=== PATIENT | female | born 1950 | race Two or more races ===

== ENCOUNTER 2022-12-19 10:35 | Inpatient (IN) | payer OTHER ==
[~2022-12-19] VITALS: Ht 152.4 cm; Wt 63.5 kg
[2022-12-19 12:10] LABS: MEAN CELL VOLUME 72.5 fL (80.00-100.00); MEAN CORPUSCULAR HGB CONC 30.3 g/dl (32.0-36.0); PLATELET COUNT 297 K/uL (150-450); RED CELL DISTRIBUTION WIDTH 23.8 % (11.5-14.5)
[2022-12-19 12:13] LABS: MEAN CORPUSCULAR HEMOGLOBIN 21.8 pg (27.00-32.0)
[2022-12-19 12:14] LABS: HEMATOCRIT 23.2 % (36.0-45.00)
[2022-12-19 12:25] LABS: INR 1.06; PARTIAL THROMBOPLASTIN TIME 25.1 SECONDS (22.0-34.0); PROTHROMBIN TIME 11.1 SECONDS (9.0-11.5)
[2022-12-19 12:32] LABS: ALBUMIN 3.3 gm/dL (3.4-5.0); BILIRUBIN TOTAL 0.69 mg/dL (0.3-1.2); BILIRUBIN,CONJUGATED 0.19 mg/dL (0.0-0.2); BILIRUBIN,UNCONJUGATED 0.5 mg/dL (0.0-0.6); CALCIUM 8.6 mg/dL (8.5-10.1); CREATININE SERUM 0.8 mg/dL (0.55-1.02); GFR 70.31; GLOBULINA 3.4 G/DL (2.4-3.5); POTASSIUM 3.94 mEq/L (3.5-5.1); TOTAL PROTEIN 6.7 gm/dL (6.4-8.2)
[2022-12-19 21:07] LABS: INR 1.03; PARTIAL THROMBOPLASTIN TIME 25.3 SECONDS (22.0-34.0); PROTHROMBIN TIME 10.8 SECONDS (9.0-11.5)
[2022-12-19 21:55] LABS: URINE APPEARANCE Clear; URINE BILIRRUBIN Negative (NEGATIVE); URINE BLOOD Negative; URINE COLOR Yellow; URINE GLUCOSE Negative (NEGATIVE); URINE LEUKOCYTE Moderate; URINE NITRATE Negative; URINE PROTEIN Negative (NEGATIVE); URINE UROBILINOGEN 0.2 E.U./dl
[2022-12-19 21:59] LABS: URINE BACTERIA 37.7 uL (0.0-1933); URINE EPITHELIAL CELLS 9.8 uL (0.0-38.8); URINE WBC 77.2 uL (0.0-23.2)
[2022-12-19 21:59] LABS: ob NEGATIVE (NEGATIVE)
[2022-12-19 22:00] LABS: URINE RBC 0.7 uL (0.0-20.8)
[2022-12-21 20:05] LABS: HEMATOCRIT 38.5 % (36.0-45.00); MEAN CELL VOLUME 77.6 fL (80.00-100.00); MEAN CORPUSCULAR HEMOGLOBIN 24.2 pg (27.00-32.0); MEAN CORPUSCULAR HGB CONC 31.2 g/dl (32.0-36.0); PLATELET COUNT 303 K/uL (150-450); RED BLOOD COUNT 4.96 M/uL (4.00-6.00); RED CELL DISTRIBUTION WIDTH 23.9 % (11.5-14.5)
[2022-12-22 12:42] LABS: ALBUMIN 3.5 gm/dL (3.4-5.0); BILIRUBIN TOTAL 0.92 mg/dL (0.3-1.2); CALCIUM 8.7 mg/dL (8.5-10.1); CHOL HDL RATIO 2.5 (0-5.0); CREATININE SERUM 0.6 mg/dL (0.55-1.02); GFR 97.99; POTASSIUM 3.63 mEq/L (3.5-5.1); TOTAL PROTEIN 6.5 gm/dL (6.4-8.2)
[2022-12-24 06:29] LABS: HEMATOCRIT 34.1 % (36.0-45.00); HEMOGLOBIN 11.1 g/dL (12.0-15.00); MEAN CELL VOLUME 76.1 fL (80.00-100.00); MEAN CORPUSCULAR HEMOGLOBIN 24.7 pg (27.00-32.0); MEAN CORPUSCULAR HGB CONC 32.5 g/dl (32.0-36.0); PLATELET COUNT 261 K/uL (150-450); RED BLOOD COUNT 4.48 M/uL (4.00-6.00); RED CELL DISTRIBUTION WIDTH 24.8 % (11.5-14.5)
[2022-12-24] MEDS ORDERED: JARDIANCE10 MG (11:47)
[2022-12-24] MEDS ORDERED: GABAPENTIN300 M2 (11:47)
[2022-12-24] MEDS ORDERED: ROSUVASTATIN CAL5 MG (11:48)
[2022-12-25 06:59] LABS: ALBUMIN 3.2 gm/dL (3.4-5.0); CALCIUM 8.4 mg/dL (8.5-10.1); CREATININE SERUM 0.62 mg/dL (0.55-1.02); GFR 94.35; POTASSIUM 4.72 mEq/L (3.5-5.1)
[2022-12-25 07:01] LABS: HEMATOCRIT 34.8 % (36.0-45.00); HEMOGLOBIN 11.2 g/dL (12.0-15.00); MEAN CELL VOLUME 76.6 fL (80.00-100.00); MEAN CORPUSCULAR HEMOGLOBIN 24.7 pg (27.00-32.0); MEAN CORPUSCULAR HGB CONC 32.3 g/dl (32.0-36.0); PLATELET COUNT 256 K/uL (150-450); RED BLOOD COUNT 4.55 M/uL (4.00-6.00); RED CELL DISTRIBUTION WIDTH 24.8 % (11.5-14.5)
== END 2022-12-25 21:57 | DRG 812 ==
LOC: ER 10:36 → SURG 18:56 → EDBD 18:56 → SEC-K 18:56 → SURG 21:47
PROVIDERS: Emergency Medicine; General Practice; ADMIT Internal Medicine; ATTEND Internal Medicine
PROC: BW21YZZ Computerized Tomography (CT Scan) of Abdomen and Pelvis using Other Contrast (ICD-10-PCS; 2022-12-19)
PROC: 30233N1 Transfusion of Nonautologous Red Blood Cells into Peripheral Vein, Percutaneous Approach (ICD-10-PCS; principal; 2022-12-20)
PROC: 02HV33Z Insertion of Infusion Device into Superior Vena Cava, Percutaneous Approach (ICD-10-PCS; 2022-12-22)
PROC: 3E0436Z Introduction of Nutritional Substance into Central Vein, Percutaneous Approach (ICD-10-PCS; 2022-12-22)
PROC: 0DB68ZX Excision of Stomach, Via Natural or Artificial Opening Endoscopic, Diagnostic (ICD-10-PCS; 2022-12-23)
PROC: BB24YZZ Computerized Tomography (CT Scan) of Bilateral Lungs using Other Contrast (ICD-10-PCS; 2022-12-24)
DX: D64.89 Other specified anemias (principal); K92.2 Gastrointestinal hemorrhage, unspecified; D49.0 Neoplasm of unspecified behavior of digestive system; E11.9 Type 2 diabetes mellitus without complications; Z74.01 Bed confinement status; Z79.4 Long term (current) use of insulin

== ENCOUNTER 2023-02-27 07:30 | Inpatient (IN) | payer OTHER ==
[~2023-02-27] VITALS: Ht 152.4 cm; Wt 58.5 kg
[~2023-02-27 07:30] MED LIST: GABAPENTIN300 M2; JARDIANCE10 MG; ROSUVASTATIN CAL5 MG
[2023-02-27] MEDS ORDERED: GLUMETZA500 MG (09:04)
[2023-02-27 10:25] LABS: PH,URINE 6.5 (5.0-8.0); URINE APPEARANCE Clear; URINE BILIRRUBIN Negative (NEGATIVE); URINE BLOOD Negative; URINE COLOR Yellow; URINE GLUCOSE Negative (NEGATIVE); URINE LEUKOCYTE Trace; URINE NITRATE Negative; URINE PROTEIN Negative (NEGATIVE); URINE UROBILINOGEN 0.2 E.U./dl
[2023-02-27 10:30] LABS: HEMATOCRIT 39.1 % (36.0-45.00); HEMOGLOBIN 12.7 g/dL (12.0-15.00); MEAN CORPUSCULAR HEMOGLOBIN 22.1 pg (27.00-32.0); MEAN CORPUSCULAR HGB CONC 32.5 g/dl (32.0-36.0); RED BLOOD COUNT 5.74 M/uL (4.00-6.00)
[2023-02-27 10:31] LABS: URINE BACTERIA 6.2 uL (0.0-1933); URINE EPITHELIAL CELLS 9.2 uL (0.0-38.8); URINE WBC 8.5 uL (0.0-23.2)
[2023-02-27 10:47] LABS: URINE RBC 1.5 uL (0.0-20.8)
[2023-02-27 10:49] LABS: INR 1.04; PARTIAL THROMBOPLASTIN TIME 30.3 SECONDS (22.0-34.0); PROTHROMBIN TIME 10.9 SECONDS (9.0-11.5)
[2023-02-27 10:56] LABS: ALBUMIN 3.9 gm/dL (3.4-5.0); BILIRUBIN TOTAL 0.79 mg/dL (0.3-1.2); CALCIUM 9.7 mg/dL (8.5-10.1); CREATININE SERUM 0.64 mg/dL (0.55-1.02); GFR 90.96; GLOBULINA 3.7 G/DL (2.4-3.5); POTASSIUM 4.95 mEq/L (3.5-5.1); TOTAL PROTEIN 7.6 gm/dL (6.4-8.2)
[2023-02-27 11:53] LABS: MEAN CELL VOLUME 68.1 fL (80.00-100.00); RED CELL DISTRIBUTION WIDTH 25.6 % (11.5-14.5)
[2023-02-27 11:54] LABS: PLATELET COUNT 243 K/uL (150-450)
[2023-03-05 07:11] LABS: HEMATOCRIT 36.3 % (36.0-45.00); HEMOGLOBIN 11.4 g/dL (12.0-15.00); MEAN CORPUSCULAR HEMOGLOBIN 21.3 pg (27.00-32.0); MEAN CORPUSCULAR HGB CONC 31.4 g/dl (32.0-36.0); RED BLOOD COUNT 5.37 M/uL (4.00-6.00); RED CELL DISTRIBUTION WIDTH 24.6 % (11.5-14.5)
[2023-03-05 08:07] LABS: MEAN CELL VOLUME 67.6 fL (80.00-100.00)
[2023-03-05 08:08] LABS: PLATELET COUNT 205 K/uL (150-450)
[2023-03-05] MEDS ORDERED: JARDIANCE10 MG (14:45)
[2023-03-06 04:56] LABS: CALCIUM 8.1 mg/dL (8.5-10.1); CREATININE SERUM 0.73 mg/dL (0.55-1.02); GFR 78.15; POTASSIUM 4.21 mEq/L (3.5-5.1)
== END 2023-03-09 16:10 | disposition home or self-care (01) | DRG 327 ==
LOC: SURG 03-04 07:00 → O/R 03-04 13:32 → SURG 03-04 17:44 → SURH 03-06 12:00
PROVIDERS: ADMIT Surgery; ATTEND Surgery
PROC: 0D9670Z Drainage of Stomach with Drainage Device, Via Natural or Artificial Opening (ICD-10-PCS; 2023-03-04)
PROC: 0DB60ZZ Excision of Stomach, Open Approach (ICD-10-PCS; principal; 2023-03-04 07:00)
PROC: 3E0336Z Introduction of Nutritional Substance into Peripheral Vein, Percutaneous Approach (ICD-10-PCS; 2023-03-05)
PROC: 0DP0XUZ Removal of Feeding Device from Upper Intestinal Tract, External Approach (ICD-10-PCS; 2023-03-06)
DX: C49.A2 Gastrointestinal stromal tumor of stomach (principal); K92.2 Gastrointestinal hemorrhage, unspecified; E11.9 Type 2 diabetes mellitus without complications; Z79.84 Long term (current) use of oral hypoglycemic drugs